=== PATIENT | male | born 1945 | race Caucasian/White ===

== ENCOUNTER 2022-09-28 15:58 | Emergency (ER) | payer MEDICARE ==
[2022-09-28] MEDS ORDERED: Fluor-I-Strip/Ful-Flo OP ONE ×2 (18:07→18:31)
[2022-09-28] MEDS ORDERED: TETRACAINE 0.5% STERI-UNIT SOL OP ONE (18:07)
[2022-09-28] MEDS ORDERED: Eye-Stream Solution ONE (18:07)
[2022-09-28 18:31] VITALS: BP 117/80; PULSE 115; O2SAT 96
[2022-09-28] MEDS ORDERED: TETRACAINE 0.5% STERI-UNIT SOL OP STA (18:31)
[2022-09-28] MEDS ORDERED: Eye-Stream Solution OP ONE (18:31)
--- NOTE | 2022-09-28 18:33 | ERPHSYRPT ---
- History of Present Illness Time Seen by Provider: 09/28/22 18:34 Source: patient Exam Limitations: no limitations Patient Subjective Stated Complaint: Eye injury Triage Nursing Assessment: Patient ambulated back to ED and transferred self to bed. Patient A+O X3. Patient's skin pink, warm and dry. Patient complains of seeing a hair like figure in his left eye for 2 days. Patient denies pain or discomfort. Left eye is not red or has no drainage present. Patient called [facility] and was told to come to nearest ER to be ruled out for detached retina. Physician History: Patient is a 77-year-old male presents to our ED as a referral from the [facility]. Patient is a patient at the [facility]. Patient states he has been seeing a hair-like floater at the lateral aspect of his left eye. Symptoms started approximately 2 days ago. Symptoms have been stable. Patient denies eye pain. No flashing light. Vision intact. No change in visual acuity. Patient denies observing "a curtain coming down" which would be indicative of a retinal detachment. Patient has a history of glaucoma. Glaucoma is well controlled. Patient is currently medicated by a binder selector. Patient unable to get into his binder selector for an evaluation. Patient otherwise feels well. No nausea no vomiting. No trauma. Patient denies a history of the same. He voices no other complaints or concerns at this time. Portions of this note were created with voice recognition technology. There may be grammatical, spelling, punctuation or sound alike errors Timing/Duration: day(s) (2 days) Location: left eye Severity: mild Apparent Injury: no Associated Symptoms: other, No sensitivity to light, No eyelid swelling, No decreased vision Visual Assistive Devices: Glasses Chemical Exposure: No Trauma: No Welding Arc/Tanning Bed Exposure: No Allergies/Adverse Reactions: Penicillins Allergy (Verified 09/28/22 16:05) Hx Tetanus, Diphtheria Vaccination/Date Given: Yes Hx Influenza Vaccination/Date Given: Yes Hx Pneumococcal Vaccination/Date Given: Yes Immunizations Up to Date: Yes Travel Risk - International Travel Have you traveled outside of the country in past 3 weeks: No - Coronavirus Screening Are you exhibiting any of the following symptoms?: No Close contact with a COVID-19 positive Pt in past 14-21 Days: No - Vaccine Status Have you recieved a Covid-19 vaccination: Yes Wallpaper Remover Steam: Unknown - Vaccination Dates Dates if Unknown: na - Review of Systems Constitutional: No Symptoms, No Fever, No Chills Eyes: No Symptoms Ears, Nose, & Throat: No Symptoms Respiratory: No Symptoms, No Cough, No Dyspnea Cardiac: No Symptoms, No Chest Pain, No Edema, No Syncope Abdominal/Gastrointestinal: No Symptoms, No Abdominal Pain, No Nausea, No Vomiting, No Diarrhea Genitourinary Symptoms: No Symptoms, No Dysuria Musculoskeletal: No Symptoms, No Back Pain, No Neck Pain Skin: No Symptoms, No Rash Neurological: No Symptoms, No Dizziness, No Focal Weakness, No Sensory Changes Psychological: No Symptoms Endocrine: No Symptoms Hematologic/Lymphatic: No Symptoms Immunological/Allergic: No Symptoms All Other Systems: Reviewed and Negative - Past Medical History Neurological History: No Pertinent History Cardiac History: No Pertinent History Respiratory History: No Pertinent History Endocrine Medical History: No Pertinent History Musculoskeletal History: Osteoarthritis - Past Surgical History Past Surgical History: No Neuro Surgical History: No Pertinent History Cardiac: No Pertinent History Respiratory: No Pertinent History Gastrointestinal: No Pertinent History Genitourinary: No Pertinent History Musculoskeletal: No Pertinent History Male Surgical History: No Pertinent History - Social History Smoking Status: Former smoker Exposure to second hand smoke: No Drug Use: none Patient Lives Alone: No - Nursing Vital Signs Nursing Vital Signs: Initial Vital Signs Temperature 97.7 F 09/28/22 16:04 Pulse Rate 115 H 09/28/22 16:04 Respiratory Rate 18 09/28/22 16:04 Blood Pressure 117/80 09/28/22 16:04 O2 Sat by Pulse Oximetry 96 09/28/22 16:04 Pain Scale Pain Intensity 0 - Physical Exam General Appearance: other (Ultrasound evaluation of left eye was performed with a Tegaderm, ultrasound gel and an ultrasound unit. No vitreal or retinal detachment observed.) Vision Acuity Degree Evaluation Phase: Corrected Vision Acuity Right Eye: 20/70 Vision Acuity Left Eye: 20/50 Intraocular Pressure (Tonopen): both eyes (9) Eye Exam: bilateral eye: normal inspection, PERRL, EOMI, other (Visual acuity performed with eyeglasses on.) Ears, Nose, Throat Exam: normal ENT inspection Neck Exam: normal inspection, supple, full range of motion Respiratory Exam: normal breath sounds, lungs clear, No respiratory distress Cardiovascular Exam: regular rate/rhythm Gastrointestinal Exam: soft, No distention Extremity Exam: normal inspection Neurologic: alert, oriented x 3, cooperative, 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 Skin Exam: normal color, warm, dry Lymphatic: No adenopathy SpO2 Interpretation: normal SpO2: 96 O2 Delivery: Room Air - Course Nursing assessment & vital signs reviewed: Yes Ordered Tests: Active Orders 24 hr Category Date Time Status Visual Acuity STAT Care 09/28/22 16:04 Active Medication Summary Discontinued Medications Generic Name Dose Route Start Last Admin Trade Name Pooja PRN Reason Stop Dose Admin Eye Irrigation Solution Confirm 09/28/22 18:07 Sodium/Potassium/Charlie/Magnesium 30 Ml Eye Wash Administered 09/28/22 18:08 Dose 30 ml .ROUTE .STK-MED ONE Eye Irrigation Solution 15 ml 09/28/22 18:31 Sodium/Potassium/Charlie/Magnesium 30 Ml Eye Wash OP 09/28/22 18:32 STAT ONE Fluorescein Sodium Confirm 09/28/22 18:07 Fluorescein Sodium 1 Mg/Strip Strip Administered 09/28/22 18:08 Dose 1 mg OP .STK-MED ONE Fluorescein Sodium 1 mg 09/28/22 18:31 Fluorescein Sodium 1 Mg/Strip Strip OP 09/28/22 18:32 STAT ONE Tetracaine HCl Confirm 09/28/22 18:07 Tetracaine Hcl/Pf 4 Ml Bottle Administered 09/28/22 18:08 Dose 4 ml OP .STK-MED ONE Tetracaine HCl 4 ml 09/28/22 18:31 Tetracaine Hcl/Pf 4 Ml Bottle OP 09/28/22 18:32 STAT STA - Progress Progress: unchanged Progress Note: Patient is a 77-year-old male presents to our ED for evaluation of a hair-like floater to the peripheral upper and lower visual field left eye. Symptoms have been ongoing for 2 days. No pain no change in visual acuity. Patient answered negatively to the questions pertaining to retinal detachment. 09/28/22 18:39 Patient's involved globe was examined using ultrasound. We placed a Tegaderm over the involved eye. Ultrasound gel was placed. We were able to observe the optic nerve. There is no hyperechoic lines observed. The globes appear to be normal. Complexity of problem addressed is low acute uncomplicated. No critical care time. Complex of data reviewed and analyzed is none. Diagnosis made based on history and physical examination. Risk of complication and or risk morbidity/mortality of patient management is low We currently do not have ophthalmology available. No immediate emergency identified. No vitreous or retinal detachment. Patient is pain-free. No acute change in visual acuity. We will contact an binder selector in the morning and arrange for patient to see an binder selector in the morning. No social determinants of health present to interfere with follow-up. Portions of this note were created with voice recognition technology. There may be grammatical, spelling, punctuation or sound alike errors 09/28/22 18:42 Counseled pt/family regarding: diagnosis, need for follow-up - Departure Departure Disposition: Home Clinical Impression: Floaters in visual field Condition: Stable Critical Care Time: No Referrals: [facility] [Primary Care Provider] - Follow up/PCP as directed Additional Instructions: Discharge/Care Plan NAOMI HERNANDEZ was seen on 09/28/22 in the Emergency Room. The patient was counseled regarding Diagnosis,Lab results, Imaging studies, need for follow up and when to return to the Emergency Room. Prescriptions given: Discharge Note I have spoken with the patient and/or caregivers. I have explained the patient's condition, diagnosis and treatment plan based on the information available to me at this time. I have answered the patient's and/or caregiver's questions and addressed any concerns. The patient and/or caregivers have as good understanding of the patient's diagnosis, condition and treatment plan as can be expected at this point. The vital signs have been stable. The patient's condition is stable and appropriate for discharge from the emergency department. The patient will pursue further outpatient evaluation with the primary care physician or other designated or consulting physician as outlined in the discharge instructions. The patient and/or caregivers are agreeable to this plan of care and follow-up instructions have been explained in detail. The patient and/or caregivers have received these instruction. The patient/and or caregivers are aware that any significant change in condition or worsening of symptoms should prompt an immediate return to this or the closest emergency department or call 911.
== END 2022-09-28 18:47 | disposition home or self-care (01) ==
LOC: ED 15:58
DX: H43.392 Other vitreous opacities, left eye (principal)
CPT/HCPCS: 99282; A9270-GY